=== PATIENT | male | born 1980 | race Caucasian/White ===

== ENCOUNTER 2020-06-02 12:41 | Emergency (ER) | payer OTHER ==
[2020-06-02] MEDS ORDERED: BUFFERED LIDOCAINE 10 ML SYRINGE SUBQ STA (14:45)
--- NOTE | 2020-06-02 15:19 | XRAY Report ---
PROCEDURE: Finger(s) LT INDICATIONS: L thumb laceration TECHNIQUE: 3 views of the left first digit. COMPARISON: None FINDINGS: Bones: No fractures or dislocations. No suspicious bony lesions. Soft tissues: No suspicious soft tissue calcifications. IMPRESSION: No acute fracture. No osseous lesion. If symptoms and/or clinical suspicion for pathology continue, f urther assessment with repeat plain films, or advanced imaging (e.g., CT, MRI, or bone scan) is recom mended for further assessment. Reviewed by: Silvia Larson MD on 06/02/2020 2:17 PM [facility] Approved by: Silvia Larson MD on 06/02/2020 2:17 PM [facility] Station ID: [id number]
[2020-06-02 15:39] VITALS: BP 135/91
[2020-06-02] MEDS ORDERED: IBUPROFEN 800 MG TABLET PO STA (15:44)
--- NOTE | 2020-06-02 15:46 | ED Physician Documentation ---
PD HPI UPPER EXT INJURY - Stated complaint Stated Complaint: LT THUMB LAC - Chief complaint Chief Complaint: Laceration - History obtained from History obtained from: Patient - History of Present Illness Location: Left, Finger (thumb) Where injury occurred: Other (parking lot) Timing - duration: Hours (1) Timing - details: Abrupt onset Pain level max: 4 Pain level now: 3 Improved by: Rest Worsened by: Moving, Palpating Associated symptoms: Numbness (States that the distal aspect of his thumb is numb). No: Weakness Recently seen: Not recently seen - Additonal information Additional information: Patient states that he was trying to open a package with a knife when he accidentally cut himself with a knife at the base of his left thumb. MCP joint. Tdap up-to-date. Pt is right handed. Review of Systems Constitutional: denies: Fever, Chills PD PAST MEDICAL HISTORY - Past Medical History Past Medical History: No - Past Surgical History Past Surgical History: No - Present Medications Home Medications: Ambulatory Orders Medication Instructions Recorded Confirmed Ibuprofen [Motrin] 800 mg PO Q8H PRN #30 tablet 06/02/20 - Allergies Allergies/Adverse Reactions: Allergies Allergy/AdvReac Type Severity Reaction Status Date / Time No Known Drug Allergies Allergy Verified 06/02/20 13:25 - Social History Does the pt have substance abuse?: No - Family History Family history: reports: Non contributory PD ED PE NORMAL - Vitals Vital signs reviewed: Yes - General General: Alert and oriented X 3, No acute distress - HEENT HEENT: Moist mucous membranes - Derm Derm: Warm and dry - Neuro Neuro: Alert and oriented X 3 - Psych Psych: Normal mood, Normal affect PD ED PE EXPANDED - Extremities TOM UE/Hands Visual: 1 - laceration (1.5cm, normal sensation other than the distal tip. able to bend finger at all joints. tendon appears intact.) Results - Vitals Vitals: Vital Signs - 24 hr 06/02/20 06/02/20 13:17 15:39 Temperature 36.9 C 36.9 C Heart Rate 86 63 Respiratory 20 16 Rate Blood Pressure 132/84 H 135/91 H O2 Saturation 99 96 Oxygen O2 Source Room air - Rads (name of study) L thumb xray Radiology: Prelim report reviewed, EMP read contemporaneously, See rad report (normal xray) Procedures - Laceration (location) Left thumb Length in cm: 1.5 Wound type: Linear, Into subcut fat, Clean Neurovascular status: Motor intact, Vascular intact, Other (Decreased sensation over the distal tip of the thumb.) Tendon involvement: Tendon intact Anesthesia: Lidocaine 1% Wound Preparation: Irrigated copiously NS, Wound explored, To the base Skin layer closure: Nylon, Interrupted, Size #-0 - enter number (4) Other: Patient tolerated well, No complications, Neurovascular intact, Dressing applied, Tetanus UTD Complexity: Simple PD MEDICAL DECISION MAKING - ED course Complexity details: reviewed results, re-evaluated patient, considered differential, d/w patient ED course: 40-year-old male with a laceration to the base of the left thumb. Near the MCP joint. He does have decreased sensation over the distal tip of the left thumb, but not over the proximal phalanx which is directly above the laceration. Full range of motion of the thumb, but is having some pain with this. Unable to fully test his tendon secondary to pain. He will need this reevaluated in a week with his doctor and/or orthopedics [place]. Laceration repaired. Tolerated well. Warnings of infection and instructions on wound care given at bedside. Also counseled on how to minimize scarring. Patient counseled regarding signs and symptoms for which I believe and urgent re-evaluation would be necessary. Patient with good understanding of and agreement to plan and is comfortable going home at this time This document was made in part using voice recognition software. While efforts are made to proofread this document, sound alike and grammatical errors may occur. Departure - Departure Disposition: 01 Home, Self Care Clinical Impression: Laceration of thumb Qualifiers: Encounter type: initial encounter Damage to nail status: without damage Foreign body presence: without foreign body Laterality: left Qualified Code(s): S61.012A - Laceration without foreign body of left thumb without damage to nail, initial encounter Condition: Good Instructions: ED Laceration Hand Follow-Up: TERENCE PHAM MD [Primary Care Provider] - Within 1 week Prescriptions: Ibuprofen [Motrin] 800 mg PO Q8H PRN #30 tablet PRN Reason: PAIN &/OR FEVER Comments: Return if you worsen. The sutures should be removed in 10-14 days with your doctor. Wear the the splint for the next 4-5 days. Your nerves and tendons will need to be re-evaluated with your doctor or orthopedics in 10-14 days Discharge Date/Time: 06/02/20 16:08
== END 2020-06-02 16:08 | disposition home or self-care (01) ==
LOC: ED 12:41
DX: S61.012A Laceration without foreign body of left thumb without damage to nail, initial encounter (principal); W26.0XXA Contact with knife, initial encounter; Y92.481 Parking lot as the place of occurrence of the external cause
CPT/HCPCS: 12001; 73140; 99282; 99283; A9270